=== PATIENT | male | born 1960 | race Caucasian/White ===

== ENCOUNTER → 2024-05-18 13:23 | Outpatient (REF) | payer OTHER, SELFPAY | LOC: RAD 13:23 | PROVIDERS: ATTENDING PHYSICIAN Family Medicine | DX: M25.561 Pain in right knee (principal); M25.562 Pain in left knee | CPT/HCPCS: 73564 ==

== ENCOUNTER 2024-07-18 16:26 | Outpatient (RCR) | payer OTHER, SELFPAY | END 2024-07-18 23:59 | disposition home or self-care (01) | LOC: RPT 16:26 | PROVIDERS: ATTENDING PHYSICIAN Family Medicine | DX: M17.11 Unilateral primary osteoarthritis, right knee (principal); Z73.6 Limitation of activities due to disability | CPT/HCPCS: 97110; 97112; 97162; 97530 ==

== ENCOUNTER 2024-08-08 16:58 | Outpatient (RCR) | payer OTHER, SELFPAY | END 2024-08-09 07:18 | disposition home or self-care (01) | LOC: RPT 16:58 | PROVIDERS: ATTENDING PHYSICIAN Family Medicine | DX: M17.11 Unilateral primary osteoarthritis, right knee (principal); Z73.6 Limitation of activities due to disability | CPT/HCPCS: 97110; 97112; 97530 ==

== ENCOUNTER → 2024-10-04 06:21 | Day surgery (SDC) | payer OTHER, SELFPAY | LOC: GI 06:21 | PROVIDERS: ATTENDING PHYSICIAN Internal Medicine Gastroenterology; FAMILY PHYSICIAN Family Medicine | DX: Z12.11 Encounter for screening for malignant neoplasm of colon (principal); D12.2 Benign neoplasm of ascending colon; D12.3 Benign neoplasm of transverse colon; K57.30 Diverticulosis of large intestine without perforation or abscess without bleeding; K64.8 Other hemorrhoids; Z86.0100 Personal history of colon polyps, unspecified | CPT/HCPCS: 45385; 88305 ==

== ENCOUNTER 2024-12-20 16:10 | Outpatient (RCR) | payer OTHER, SELFPAY | END 2024-12-20 23:59 | disposition home or self-care (01) | LOC: RPT 16:10 | PROVIDERS: ATTENDING PHYSICIAN Physician Assistant; FAMILY PHYSICIAN Family Medicine | DX: M25.562 Pain in left knee (principal); M25.561 Pain in right knee; M17.0 Bilateral primary osteoarthritis of knee; Z73.6 Limitation of activities due to disability; R26.2 Difficulty in walking, not elsewhere classified; R26.89 Other abnormalities of gait and mobility | CPT/HCPCS: 97110; 97162 ==

== ENCOUNTER 2025-01-15 16:05 | Outpatient (RCR) | payer OTHER, SELFPAY | END 2025-01-15 23:59 | disposition home or self-care (01) | LOC: RPT 16:05 | PROVIDERS: ATTENDING PHYSICIAN Physician Assistant; FAMILY PHYSICIAN Family Medicine | DX: M25.562 Pain in left knee (principal); M25.561 Pain in right knee; M17.0 Bilateral primary osteoarthritis of knee; Z73.6 Limitation of activities due to disability; R26.2 Difficulty in walking, not elsewhere classified; R26.89 Other abnormalities of gait and mobility | CPT/HCPCS: 97110; 97530 ==

== ENCOUNTER 2025-01-29 16:07 | Outpatient (RCR) | payer OTHER, SELFPAY | END 2025-01-31 08:19 | disposition home or self-care (01) | LOC: RPT 16:07 | PROVIDERS: ATTENDING PHYSICIAN Physician Assistant; FAMILY PHYSICIAN Family Medicine | DX: M25.562 Pain in left knee (principal); M25.561 Pain in right knee; M17.0 Bilateral primary osteoarthritis of knee; Z73.6 Limitation of activities due to disability; R26.2 Difficulty in walking, not elsewhere classified; R26.89 Other abnormalities of gait and mobility | CPT/HCPCS: 97110; 97530 ==

== ENCOUNTER 2025-06-14 11:22 | Emergency (ER) | payer OTHER, SELFPAY ==
[2025-06-14] VITALS (8 sets, daily range): BP systolic 107–137; BP diastolic 78–105
[2025-06-14 11:42] LABS: Hematocrit 40.9 % (39.0-52.0); Hemoglobin 14.3 g/dL (13.0-18.0); Mean Corp Hgb Conc. 35.0 g/dL (33.0-37.0); Mean Corpuscular Volume 94.2 fL (80.0-94.0); Nucleated Red Blood Cells % 0 % (-); Platelet Count 242 10^3/uL (130-400); Red Cell Dist. Width 12.0 % (11.5-14.5)
[2025-06-14 11:54] LABS: INR 0.90; PT 12.6 Sec (11.4-14.6)
--- NOTE | 2025-06-14 11:59 | ED.GENMED ---
History of Present Illness
General
Chief Complaint: Heart Rate Problem
Time Seen by Provider: 06/14/25 11:58
History of Present Illness
History of Present Illness:
TIME OF INITIAL EVALUATION
- 12 PM
REVIEW OF OLD RECORDS
- I reviewed the EKG from the patient's office which shows new onset atrial fibrillation with RVR
Note:
CHIEF COMPLAINT(S)
Atrial Fibrillation detected during a routine physical exam.
HISTORY OF PRESENT ILLNESS
The patient is a 64-year-old male who presented for a routine physical examination with his primary care physician. During the physical, an electrocardiogram (EKG) was performed, which revealed atrial fibrillation. The patient reports no symptoms
such as palpitations, dizziness, or syncope at the time of the exam. The condition was discovered incidentally and the patient would not have been aware of it without the EKG. The patients heart rate has been recorded as high as 150 beats per
minute. He denies any history of cardiac stents, myocardial infarction, or routine cardiology follow-up.
MEDICATIONS
The patient is currently taking baby aspirin and has not been on blood-thinning medications like apixaban (Eliquis) or rivaroxaban (Xarelto).
REVIEW OF SYSTEMS
-Cardiovascular: No palpitations, no history of syncope, history of atrial fibrillation identified via EKG.
PHYSICAL EXAM
General: Alert, no acute distress.
Skin: Warm, dry.
Head: Normocephalic, atraumatic.
Neck: Supple, trachea midline.
Eye Ears, nose, mouth and throat: Oral mucosa moist.
Cardiovascular: Normal peripheral perfusion, No edema.
Respiratory: Respirations are non-labored.
Gastrointestinal: Abdomen nondistended
Back: Normal range of motion, Normal alignment.
Musculoskeletal: Normal ROM, normal strength.
Neurological: Alert and oriented to person, place, time, and situation, No focal neurological deficit observed.
Psychiatric: Cooperative, appropriate mood & affect.
PLAN
- Initiation of a diltiazem drip to slow the heart rate with the potential to convert back to sinus rhythm.
- Consideration of starting the patient on a blood thinner to prevent thromboembolic events, such as a stroke, due to increased risk associated with atrial fibrillation.
- Consultation with a housing assistant for further management and potential long-term care.
- Educate the patient about the risks associated with atrial fibrillation, including the increased risk of stroke.
DIFFERENTIAL DIAGNOSIS
The Differential Diagnosis includes, in no particular order and is not limited to:
1. Atrial flutter
2. Supraventricular tachycardia
3. Ventricular tachycardia
4. Heart failure
5. Myocardial infarction
6. Hypertensive heart disease
7. Hyperthyroidism
8. Valvular heart disease
9. Anxiety-related palpitations
10. Cardiac arrhythmia due to electrolyte imbalance
RADIOLOGY
-
EKG
- A-fib 134, nonspecific ST abnormality, borderline LVH, on 12/17/2013, the patient was in sinus rhythm
LABS
- CBC is normal, chemistries unremarkable, troponin less than 0.012 not indicated
UPDATE
-SUMMARY OF ENCOUNTER
The patient, age and gender unspecified, presented to the emergency department after atrial fibrillation (AF) was detected during a previous routine physical exam. The patient was not experiencing symptoms such as palpitations or dizziness but had a
heart rate as high as 150 bpm. Currently not on any heart rate reducing medications such as metoprolol or diltiazem but takes lisinopril and hydrochlorothiazide for hypertension. Given no acute distress or symptoms, the plan considered was starting
on diltiazem (Cardizem) and anticoagulation therapy to prevent thromboembolic events. Due to the AF and potential clot risk, a cardioversion was not conducted without confirming anticoagulation status. Consulting with housing assistant Dr. Reyes and
eventually discharging home with a follow-up plan was discussed.
ASSESSMENT
Atrial Fibrillation with rapid ventricular response, considering risks of stroke or thromboembolism without anticoagulation.
MANAGEMENT OF THE PATIENTS CARE WAS DISCUSSED WITH
Consultation took place with Dr. Reyes from [facility] to determine the appropriate management plan, including whether to continue the patient on diltiazem (Cardizem) and to consider anticoagulation therapy.
PLAN
Initiate the patient on diltiazem (Cardizem) for heart rate control and start a blood thinner to reduce stroke risk. Follow-up appointment with [facility] is recommended to further manage atrial fibrillation and evaluate long-term
treatment options.
PATIENT EDUCATION AND COUNSELING
Educated the patient about the importance of managing atrial fibrillation, the risk of stroke without anticoagulation, and the necessity of following up with cardiology for further evaluation and management.
FOLLOW-UP INSTRUCTIONS
Advised the patient to make an appointment with [facility] for continued management and evaluation of atrial fibrillation and the possibility of anticoagulation therapy.
MEDICATION RECONCILIATION
Patient is currently taking lisinopril and hydrochlorothiazide for hypertension, not taking current medications to manage heart rate or anticoagulation.
MEDICAL DECISION MAKING
- Number and Complexity of Problems Addressed: Chronic conditions affecting care include hypertension and newly diagnosed atrial fibrillation. Differential Diagnosis includes atrial flutter, supraventricular tachycardia, heart failure, and more.
- Data:
Category 1: My independent interpretation of the EKG showed atrial fibrillation. Considering initiating anticoagulation and heart-rate management therapy.
Category 3: Discussion of management with housing assistant Dr. Reyes from [facility] regarding options for rate control and anticoagulation.
- Risk: Consideration of anticoagulation medications like apixaban or rivaroxaban for stroke prevention. Discussed decision regarding the administration of diltiazem to manage heart rate, with the risk of thromboembolic events without proper
anticoagulation.
- Care significantly affected by Social Determinants of Health: Access to follow-up cardiology care is a crucial next step.
DIAGNOSIS
1. Atrial Fibrillation with rapid ventricular response, unspecified (ICD-10: I48.91)
The patient was on Cardizem while in the MAR department and his heart rate has improved. I discussed case with . Patient agrees with outpatient management as he is asymptomatic as heart rate has come down. I have prescribed Eliquis and Cardizem
CD 100 mg daily. Chest pain hotline use as well
Past History
Past History
ED Past Medical History: HTN and Hypercholesterolemia
ED Past Surgical History: Other (Noncontributory)
Social History
Tobacco: Smoker
Alcohol: Daily
Drug: None
Personal:
Living: with family
Employment: Employed
Family History
Family History: Other (Noncontributory)
Phy Exam
Physical Exam
Physical Exam:
See HPI
Course
Orders/Labs/Results
Orders:
Orders
06/14/25 11:23
ECG [Electrocardiogram (*1)] Urgent
Reason for Study: Atrial Fibrillation
EKG- Treatment ONCE
06/14/25 11:35
Complete Blood Count/With Diff Urgent
Comprehensive Metabolic Panel Urgent
Prothrombin Time Urgent
TSH Reflex To Free T4 Urgent
Comment: ADD ON
Troponin I Urgent
06/14/25 12:00
Add On- LAB Urgent
Tests Added?: tsh reflex fT4
06/14/25 12:33
Diltiazem HCl [Cardizem] 10 mg IV NOW STA
06/14/25 12:45
Diltiazem 125 mg/125 ml Nss [Cardizem] 125 mg in 125 ml IV PER PROTOCOL
Initial dose in mg/hr, then titrate:: 5
Titrate to keep:: Heart rate 80-100 bpm
Titrate by mg/hr:: 5 mg/hr
Frequency of titrations (minutes):: 15
Maximum dose in mg/hr:: 15
Abnormal Lab Results
06/14/25
11:35
RBC 4.34 L 10^6/uL
(4.70-6.10)
MCV 94.2 H fL
(80.0-94.0)
MCH 32.9 H pg
(27.0-31.0)
Absolute Monos (auto) 1.3 H 10^3/uL
(0.1-0.6)
Monocytes % 16.2 H %
(1.7-9.3)
06/14/25 11:35
06/14/25 11:35
Vital Signs
Initial and Last Documented VS:
Initial Vital Signs
Temp Pulse Resp BP Pulse Ox
36.8 C 121 16 137/97 98
06/14/25 11:25 06/14/25 11:25 06/14/25 11:25 06/14/25 11:25 06/14/25 11:25
Last Documented Vital Signs
Temp Pulse Resp BP Pulse Ox
36.8 C 94 16 130/82 99
06/14/25 11:25 06/14/25 13:15 06/14/25 13:15 06/14/25 13:15 06/14/25 13:15
*Pulse Oximetry
SaO2: 98
Oxygen Mode of Delivery: Room air
Patient hypoxic: no
*Critical Care Note
Total Time (30-74mins, 75-104mins- exclusive of procedures): 35min
comment:
The patient's heart rate was as high as 154. His heart rate was controlled emergently with IV diltiazem. There has been improvement on reassessment. His vital signs were very closely monitored and remained on the engine monitor throughout the
stay in the emergency department. I also emergently discussed case with Dr. Reyes
ED Attending Note
-
Portions of this chart may have been created with voice recognition software.� Occasional wrong word or��sound alike� substitutions may have occurred due to the inherent limitations of voice recognition software.
Discharge Plan
Departure
Patient Disposition: Home (Routine Discharge)
Date of Disposition: 06/14/25
Time of Disposition: 13:42
Patient with high blood pressure during this ER visit?: Yes
Discharge Problem:
Atrial fibrillation with RVR
Instructions: Atrial Fibrillation (DC), Chest Pain CBC Follow Up, BLOOD PRESSURE
Prescriptions:
New
Eliquis 5 mg tablet
5 mg PO BID Qty: 60 0RF
diltiazem HCl [Cardizem CD] 180 mg capsule,extended release 24hr
180 mg PO DAILY Qty: 30 0RF
No Action
multivitamin [Daily Vitamin] 1 EACH tablet
1 ea PO DAILY
aspirin [Aspir-Low] 81 MG tablet,delayed release (DR/EC)
81 mg PO DAILY
simvastatin 20 MG tablet
20 mg PO HS
ferrous sulfate [Iron (ferrous sulfate)] 325 MG tablet
65 mg PO DAILY
lisinopril-hydrochlorothiazide 1 EACH tablet
1 ea PO BID
coenzyme [id number] 1 CAP capsule
1 cap PO DAILY
omega-3 fatty acids-fish oil 1 EACH capsule
1 ea PO DAILY
Referrals:
Liu Reyes MD [Active, Cardiology]
Kam Zamorano MD [Family Provider, Family Practice]
Activity Restrictions/Additional Instructions:
I discussed your care with Dr. Reyes, I am placing you on blood thinners to help prevent a stroke due to atrial fibrillation. I am also placing you on the oral form of Cardizem (we gave you IV treatment of this here). Cardiac blood work is
unremarkable. Call Dr. Reyes's office for follow-up.
Interventions
Interventions:
*Risk Screen - Suicide Last Done: 06/14/25 11:25
*General Assessment Last Done: 06/14/25 13:28
*Neglect/Abuse Screening Last Done: 06/14/25 11:25
*ED- Fall Risk Assessment Last Done: 06/14/25 13:28
*ED COVID-19 Vaccine History Last Done: 06/14/25 13:28
ED- Cardiac Assessment Last Done: 06/14/25 13:28
ED- Pulmonary Assessment Last Done: 06/14/25 13:28
Discharge Date and Time
Print Language: OCCITAN
[2025-06-14 12:09] LABS: Troponin I < 0.012 ng/ml
[2025-06-14 12:24] LABS: ALT (SGPT) 24 U/L (0-50); AST (SGOT) 20 U/L (17-59); Albumin 4.7 g/dl (3.5-5.0); Alkaline Phosphatase 85 U/L (38-126); Blood Urea Nitrogen 17 mg/dl (9-20); Calcium 9.8 mg/dl (8.4-10.2); Carbon Dioxide 25 mmol/L (22-30); Chloride 105 mmol/L (98-107); Glucose 99 mg/dl (70-99); Potassium 4.1 mmol/L (3.5-5.1); Sodium 137 mmol/L (135-145); Total Protein 8.2 g/dl (6.3-8.2); eGFR > 60.00
[2025-06-14] MEDS: CARDIZEM 10 MG IV (12:52)
[2025-06-14] MEDS: CARDIZEM 125 IV (12:53)
== END 2025-06-14 14:15 | disposition home or self-care (01) ==
LOC: EMR 11:22
PROVIDERS: EMERGENCY PHYSICIAN Emergency Medicine; FAMILY PHYSICIAN Family Medicine
DX: I48.91 Unspecified atrial fibrillation (principal); E78.00 Pure hypercholesterolemia, unspecified; I10 Essential (primary) hypertension; F17.200 Nicotine dependence, unspecified, uncomplicated; Z79.82 Long term (current) use of aspirin
CPT/HCPCS: 99284; 96374; 80053; 84443; 84484; 85025; 85610; 93005

== ENCOUNTER → 2025-06-27 07:07 | Outpatient (REF) | payer OTHER, SELFPAY | LOC: RAD 07:07 | PROVIDERS: FAMILY PHYSICIAN Family Medicine | DX: I48.0 Paroxysmal atrial fibrillation (principal) | CPT/HCPCS: 76770 ==

== ENCOUNTER → 2025-06-28 07:34 | Outpatient (REF) | payer OTHER, SELFPAY | LOC: RCS 07:34 | PROVIDERS: FAMILY PHYSICIAN Family Medicine | DX: I48.0 Paroxysmal atrial fibrillation (principal) | CPT/HCPCS: 93306 ==

== ENCOUNTER → 2025-08-08 11:52 | Outpatient (REF) | payer OTHER, SELFPAY | LOC: HWRCS 11:52 | PROVIDERS: ATTENDING PHYSICIAN Internal Medicine Cardiovascular Disease; FAMILY PHYSICIAN Family Medicine | DX: I48.19 Other persistent atrial fibrillation (principal); I42.9 Cardiomyopathy, unspecified; Z01.810 Encounter for preprocedural cardiovascular examination | CPT/HCPCS: 78452; 93017; A9500; J2785 ==

== ENCOUNTER → 2025-08-10 06:38 | Day surgery (SDC) | payer OTHER, SELFPAY ==
[2025-08-10 07:20] VITALS: BMI 29.3
--- NOTE | 2025-08-10 18:34 | ITS.CL.CARDI ---
[employer] - Cardioversion
Cardioversion
Procedure Report:
Date of Procedure: 08/10/25
Procedure: Cardioversion
Indication: Symptomatic atrial fibrillation
Performing Physician: Sangeetha Levin DO [facility]
Transesophageal echocardiogram without left atrial appendage thrombus. Please see official report for full details
Technique: The patient was brought to the holding area. Signed informed consent was obtained. A time out was called and performed. The patient was anesthetized by the anesthesia service. Anticoagulation status was reviewed and appropriate. R2 pads
were placed anteriorly and posteriorly. Transesophageal echocardiogram completed without complications. A 200J synchronized biphasic shock restored normal sinus rhythm without significant bradycardia. There were no complications.
Conclusion: Uncomplicated cardioversion from atrial fibrillation to sinus rhythm.
Recommendation: Routine post cardioversion care. Continue rodent exterminator anticoagulation.
== END ==
LOC: CATH 06:38
PROVIDERS: ATTENDING PHYSICIAN Internal Medicine Cardiovascular Disease; FAMILY PHYSICIAN Family Medicine; OTHER PHYSICIAN Internal Medicine Cardiovascular Disease
DX: I48.19 Other persistent atrial fibrillation (principal); Z79.01 Long term (current) use of anticoagulants; I08.3 Combined rheumatic disorders of mitral, aortic and tricuspid valves; F17.210 Nicotine dependence, cigarettes, uncomplicated; R06.83 Snoring; I42.9 Cardiomyopathy, unspecified; E78.5 Hyperlipidemia, unspecified; Z79.899 Other long term (current) drug therapy
CPT/HCPCS: 93312; 93325; 93320; 92960; 93005

== ENCOUNTER 2025-11-21 10:08 | Outpatient (RCR) | payer OTHER, SELFPAY | END 2025-11-21 23:59 | disposition home or self-care (01) | LOC: RPT 10:08 | PROVIDERS: ATTENDING PHYSICIAN Specialist; FAMILY PHYSICIAN Family Medicine | DX: Z47.1 Aftercare following joint replacement surgery (principal); M17.0 Bilateral primary osteoarthritis of knee; Z73.6 Limitation of activities due to disability; M25.562 Pain in left knee; R26.2 Difficulty in walking, not elsewhere classified; M62.81 Muscle weakness (generalized); R26.89 Other abnormalities of gait and mobility; Z96.652 Presence of left artificial knee joint | CPT/HCPCS: 97010; 97110; 97140; 97162 ==